=== PATIENT | female | born 1965 | race Caucasian/White ===

== ENCOUNTER → 2017-01-14 | Outpatient (CLI) | payer OTHER | END | disposition home or self-care (01) | LOC: CVU 15:27 | PROVIDERS: ATTEND Internal Medicine Cardiovascular Disease | DX: I08.3 Combined rheumatic disorders of mitral, aortic and tricuspid valves (principal); I10 Essential (primary) hypertension; E11.9 Type 2 diabetes mellitus without complications; E66.01 Morbid (severe) obesity due to excess calories | CPT/HCPCS: 93306 ==

== ENCOUNTER → 2017-11-07 | Outpatient (CLI) | payer OTHER | END | disposition home or self-care (01) | LOC: CFH 07:24 | PROVIDERS: ATTEND Family Medicine | DX: Z12.31 Encounter for screening mammogram for malignant neoplasm of breast (principal) | CPT/HCPCS: 77067 ==

== ENCOUNTER → 2018-03-12 | Outpatient (CLI) | payer OTHER | END | disposition home or self-care (01) | LOC: CVU 06:39 | PROVIDERS: ATTEND Internal Medicine Cardiovascular Disease | DX: I35.1 Nonrheumatic aortic (valve) insufficiency (principal); I11.9 Hypertensive heart disease without heart failure; I71.2 Thoracic aortic aneurysm, without rupture; E11.9 Type 2 diabetes mellitus without complications; E66.9 Obesity, unspecified | CPT/HCPCS: 93306 ==

== ENCOUNTER 2018-04-12 22:04 | Emergency (ER) | payer OTHER ==
[~2018-04-12] VITALS: Ht 175.3 cm; Wt 132.2 kg
[2018-04-12 23:08] LABS: BASOPHILS # (AUTO) 0.06 x10^3/uL (0-0.1); BASOPHILS % (AUTO) 1 % (0-1); EOSINOPHILS % (AUTO) 2 % (1-7); LYMPHOCYTES # (AUTO) 2.96 x10^3/uL (1-3.4); LYMPHOCYTES % (AUTO) 28 % (22-44); MD NO; MEAN CORPUSCULAR HEMOGLOBIN 24.6 pg (27.0-34.8); MEAN CORPUSCULAR HGB CONC 32.3 g/dL (32.4-35.8); MEAN CORPUSCULAR VOLUME 76.3 fL (80-100); MEAN PLATELET VOLUME 10.3 fL (7.4-10.4); MONOCYTES # (AUTO) 0.71 x10^3/uL (0.2-0.8); MONOCYTES % (AUTO) 7 % (2-9); NEUTROPHILS # (AUTO) 6.68 x10^3/uL (1.8-6.8); NEUTROPHILS % (AUTO) 63 % (42-75); PLATELET COUNT 255 x10^3/uL (130-400); RED BLOOD COUNT 5.37 x10^6/uL (3.82-5.3); RED CELL DISTRIBUTION WIDTH 15.5 % (9.6-15.2)
[2018-04-12 23:18] LABS: ANION GAP 9 mmol/L (5-15); CHLORIDE 102 mmol/L (98-107); CREATININE 0.84 mg/dL (0.55-1.02)
[2018-04-12 23:22] LABS: TROPONIN I < 0.015 ng/mL (0.000-0.045)
[2018-04-13] MEDS ORDERED: ONDANSETRON ODT 4 MG PO ONE
[2018-04-13] MEDS ORDERED: PROMETHAZINE 25 MG/ML, 1ML IM ONE
[2018-04-13] MEDS ORDERED: PROMETHAZINE 25 MG/ML, 1ML ONE (00:06)
[2018-04-13] MEDS ORDERED: ONDANSETRON ODT 4 MG ONE (00:06)
[2018-04-13 00:23] VITALS: BP 131/77
[2018-04-13 00:33] LABS: MICROSCOPIC INDICATED
[2018-04-13 00:36] LABS: CULTURE INDICATED? YES
== END 2018-04-13 01:18 | disposition home or self-care (01) ==
LOC: ED 04-13 00:42
DX: R42 Dizziness and giddiness (principal); E11.9 Type 2 diabetes mellitus without complications; I10 Essential (primary) hypertension; E78.00 Pure hypercholesterolemia, unspecified
CPT/HCPCS: 70450; 80048; 81001; 82040; 82962; 84484; 85025; 87086; 93005; 96372; 99285; J2550; Q0162

== ENCOUNTER → 2018-08-20 | Outpatient (CLI) | payer OTHER | END | disposition home or self-care (01) | LOC: CFH 14:58 | PROVIDERS: ATTEND Family Medicine | DX: M19.071 Primary osteoarthritis, right ankle and foot (principal) ==

== ENCOUNTER 2019-10-24 16:12 | Inpatient (IN) | payer BC ==
[~2019-10-24] VITALS: Ht 175.3 cm; Wt 136.3 kg
[2019-10-24] MEDS ORDERED: ONDANSETRON 2MG/ML, 2ML ONE (16:57)
[2019-10-24] MEDS ORDERED: SODIUM CHLORIDE 0.9% 1,000ML IVBOLUS ONE (17:00)
[2019-10-24] MEDS ORDERED: SODIUM CHLORIDE FLUSH 10ML SYR IVF ONE (17:00)
[2019-10-24] MEDS ORDERED: ONDANSETRON 2MG/ML, 2ML IVPush ONE (17:00)
[2019-10-24 17:19] LABS: BASOPHILS # (AUTO) 0.01 x10^3/uL (0-0.1); BASOPHILS % (AUTO) 0 % (0-1); EOSINOPHILS # (AUTO) 0.08 x10^3/uL (0-0.4); EOSINOPHILS % (AUTO) 1 % (1-7); LYMPHOCYTES % (AUTO) 6 % (22-44); MD NO; MEAN CORPUSCULAR HEMOGLOBIN 24.6 pg (27.0-34.8); MEAN CORPUSCULAR HGB CONC 32.6 g/dL (32.4-35.8); MEAN CORPUSCULAR VOLUME 75.4 fL (80-100); MEAN PLATELET VOLUME 10.1 fL (7.4-10.4); MONOCYTES # (AUTO) 0.62 x10^3/uL (0.2-0.8); MONOCYTES % (AUTO) 5 % (2-9); NEUTROPHILS # (AUTO) 11.03 x10^3/uL (1.8-6.8); NEUTROPHILS % (AUTO) 89 % (42-75); PLATELET COUNT 249 x10^3/uL (130-400); RED BLOOD COUNT 5.59 x10^6/uL (3.82-5.3); RED CELL DISTRIBUTION WIDTH 16.2 % (9.6-15.2)
[2019-10-24 17:20] LABS: RAPID INFLUENZA A Negative (Negative); RAPID INFLUENZA B Negative (Negative)
[2019-10-24 17:27] LABS: ALANINE AMINOTRANSFERASE 32 U/L (12-78); ALBUMIN 3.6 g/dL (3.4-5.0); ANION GAP 9 mmol/L (5-15); CALCIUM 8.8 mg/dL (8.5-10.1); CHLORIDE 104 mmol/L (98-107); CREATININE 0.79 mg/dL (0.55-1.02)
[2019-10-24 17:30] LABS: ALKALINE PHOSPHATASE 77 U/L (45-117); BILIRUBIN,TOTAL 0.3 mg/dL (0.2-1.0); TOTAL PROTEIN 7.9 g/dL (6.4-8.2)
--- NOTE | 2019-10-24 17:38 | NUR ---
PT TO ED FROM HOME C/O N/V X2 DAYS. IS DIABETIC, UNABLE TO HOLD ANYTHING DOWN SINCE NOON. STS HAS BEEN HOSPITALIED FOR DKA BEFORE. PIV EST/LABS SENT. NEED UA. HYPERTENSIVE. LUQ ABD PAIN ON PALP. GURGLY BS. NO DIARRHEA/CP/SOB. STS COUGHING UP SOME PHLEGM. CALL KOWALSKI IN [place].
[2019-10-24 18:10] LABS: MICROSCOPIC INDICATED
[2019-10-24 18:17] LABS: CULTURE INDICATED? YES
[2019-10-24] MEDS ORDERED: LEVOFLOXACIN/PMX 750MG/150ML 150 ML IV ONE (18:30)
[2019-10-24] MEDS ORDERED: GUAIFENESIN/DM 200-20MG, 10ML UDC PO PRN (18:30)
[2019-10-24] MEDS ORDERED: LEVOFLOXACIN/PMX 750MG/150ML 150 ML ONE (18:41)
--- NOTE | 2019-10-24 18:47 | NUR ---
REPORT TO JENNI HOBSON.
--- NOTE | 2019-10-24 18:59 | NUR ---
PT TBADM FOR SEPSIS/VOMITING. RECEIVED [address] MEEHAN NO SECOND BOLUS NEEDED. BP STABLE. ABX PER OCT. CALL KOWALSKI IN [place]. ROCHELLE DÍAZ FROM [facility]ARM.
[2019-10-24] MEDS ORDERED: BISACODYL 10 MG SUPP PR PRN (19:30)
[2019-10-24] MEDS ORDERED: POLYETHYLENE GLYCOL 17 GM PACKET PO PRN (19:30)
--- NOTE | 2019-10-24 19:54 | NUR ---
report to lady mas. as
[2019-10-24] MEDS: HEPARIN 5,000 UNITS/ML, 1ML SQ SCH (20:30)
[2019-10-24 20:34] VITALS: BP 159/93
[2019-10-24] MEDS: ACETAMINOPHEN 325 MG TABLET PO PRN (20:36)
[2019-10-24] MEDS: ONDANSETRON ODT 4 MG PO PRN (20:36)
[2019-10-24] MEDS: SODIUM CHLORIDE 0.9% 1,000 ML IV SCH (20:37)
[2019-10-24] MEDS ORDERED: LIRA0.6P SC (22:19)
[2019-10-24] MEDS ORDERED: SIMV40TA20 PO (22:19)
[2019-10-24] MEDS ORDERED: ASPI-696 PO (22:19)
[2019-10-24] MEDS ORDERED: SITA1TAB5 PO (22:19)
[2019-10-24] MEDS ORDERED: CARV25TA PO (22:19)
[2019-10-24] MEDS ORDERED: INSU100V35 SC (22:19)
[2019-10-24] MEDS ORDERED: OMEP40CA42 PO (22:19)
[2019-10-24] MEDS: Liraglutide (Victoza 2-Pak) 1.8 MG SC SCH (23:00)
[2019-10-24] MEDS ORDERED: metFORMIN 500 MG TABLET PO SCH (23:35)
[2019-10-24] MEDS ORDERED: INSULIN GLARGINE 100 UNITS/ML, PEN SQ-INSULIN SCH (23:45)
[2019-10-25 00:35] VITALS: BP 142/78
[2019-10-25] MEDS: ASPIRIN 81 MG TABLET CHEW PO SCH ×2 (00:35→21:15)
[2019-10-25] MEDS: CARVEDILOL 25 MG TABLET PO SCH ×3 (00:35→21:15)
[2019-10-25] MEDS: ONDANSETRON ODT 4 MG PO PRN (00:35)
[2019-10-25] MEDS: SIMVASTATIN 40 MG TABLET PO SCH ×2 (00:36→21:15)
[2019-10-25] MEDS: ACETAMINOPHEN 325 MG TABLET PO PRN ×3 (01:01→21:15)
[2019-10-25 05:13] LABS: BASOPHILS # (AUTO) 0.01 x10^3/uL (0-0.1); BASOPHILS % (AUTO) 0 % (0-1); EOSINOPHILS # (AUTO) 0.04 x10^3/uL (0-0.4); EOSINOPHILS % (AUTO) 0 % (1-7); LYMPHOCYTES # (AUTO) 0.71 x10^3/uL (1-3.4); LYMPHOCYTES % (AUTO) 7 % (22-44); MD NO; MEAN CORPUSCULAR HEMOGLOBIN 24.4 pg (27.0-34.8); MEAN CORPUSCULAR HGB CONC 31.9 g/dL (32.4-35.8); MEAN CORPUSCULAR VOLUME 76.6 fL (80-100); MEAN PLATELET VOLUME 10.2 fL (7.4-10.4); MONOCYTES # (AUTO) 0.94 x10^3/uL (0.2-0.8); MONOCYTES % (AUTO) 9 % (2-9); NEUTROPHILS % (AUTO) 84 % (42-75); PLATELET COUNT 210 x10^3/uL (130-400); RED BLOOD COUNT 5.06 x10^6/uL (3.82-5.3); RED CELL DISTRIBUTION WIDTH 16.5 % (9.6-15.2)
[2019-10-25 05:24] LABS: ANION GAP 4 mmol/L (5-15); CHLORIDE 104 mmol/L (98-107); CREATININE 0.75 mg/dL (0.55-1.02)
[2019-10-25] MEDS: SODIUM CHLORIDE 0.9% 1,000 ML IV SCH ×2 (06:31→17:06)
[2019-10-25] MEDS: HEPARIN 5,000 UNITS/ML, 1ML SQ SCH ×3 (06:31→21:21)
[2019-10-25 07:26] VITALS: BP 136/87
[2019-10-25] MEDS ORDERED: LINAGLIPTIN 5 MG TAB PO SCH (08:00)
[2019-10-25] MEDS: OMEPRAZOLE 20 MG CAPSULE.DR PO SCH (08:16)
[2019-10-25] MEDS: SENNA/DOCUSATE TABLET PO SCH (08:24)
[2019-10-25] MEDS ORDERED: DEXTROSE 4 GM TAB.CHEW PO PRN (11:00)
[2019-10-25] MEDS ORDERED: DEXTROSE 50%, 50ML SYRINGE IVPush PRN (11:00)
[2019-10-25] MEDS ORDERED: GLUCAGON 1 MG IM PRN (11:00)
[2019-10-25 12:31] VITALS: BP 115/72
[2019-10-25] MEDS: INSULIN LISPRO 100 UNITS/ML, PEN SQ-INSULIN SCH ×3 (12:52→21:17)
[2019-10-25] MEDS ORDERED: OMNIPAQUE 350 MG/ML, 100ML BOTTLE ONE (17:39)
[2019-10-25] MEDS: FERROUS GLUCONATE 324 MG TABLET PO SCH (17:55)
[2019-10-25 19:57] LABS: FREE T4 (FREE THYROXINE) 1.18 ng/dL (0.76-1.46)
[2019-10-25 20:04] VITALS: BP 153/84
[2019-10-25] MEDS: TRESIBA SQ SCH (21:00)
[2019-10-25] MEDS: Liraglutide (Victoza 2-Pak) 1.8 MG SC SCH (21:00)
[2019-10-25] MEDS: SODIUM CHLORIDE FLUSH 10ML SYR IVF SCH (21:21)
[2019-10-26 02:00] VITALS: BP 121/67
[2019-10-26] MEDS: GUAIFENESIN/DM 200-20MG, 10ML UDC PO PRN ×2 (02:41→21:01)
[2019-10-26] MEDS: ACETAMINOPHEN 325 MG TABLET PO PRN ×2 (02:41→08:38)
[2019-10-26] MEDS: SODIUM CHLORIDE 0.9% 1,000 ML IV SCH ×2 (02:42→12:30)
[2019-10-26 05:32] LABS: ANION GAP 7 mmol/L (5-15); BASOPHILS # (AUTO) 0.01 x10^3/uL (0-0.1); BASOPHILS % (AUTO) 0 % (0-1); CALCIUM 7.7 mg/dL (8.5-10.1); CHLORIDE 104 mmol/L (98-107); CREATININE 0.64 mg/dL (0.55-1.02); EOSINOPHILS # (AUTO) 0.01 x10^3/uL (0-0.4); EOSINOPHILS % (AUTO) 0 % (1-7); LYMPHOCYTES # (AUTO) 0.84 x10^3/uL (1-3.4); LYMPHOCYTES % (AUTO) 16 % (22-44); MD NO; MEAN CORPUSCULAR HEMOGLOBIN 24.5 pg (27.0-34.8); MEAN CORPUSCULAR VOLUME 76.7 fL (80-100); MEAN PLATELET VOLUME 9.5 fL (7.4-10.4); MONOCYTES # (AUTO) 0.71 x10^3/uL (0.2-0.8); MONOCYTES % (AUTO) 13 % (2-9); NEUTROPHILS # (AUTO) 3.86 x10^3/uL (1.8-6.8); NEUTROPHILS % (AUTO) 71 % (42-75); PLATELET COUNT 185 x10^3/uL (130-400); RED BLOOD COUNT 4.73 x10^6/uL (3.82-5.3); RED CELL DISTRIBUTION WIDTH 16.9 % (9.6-15.2)
[2019-10-26] MEDS: HEPARIN 5,000 UNITS/ML, 1ML SQ SCH ×2 (06:32→21:00)
[2019-10-26 06:37] VITALS: BP 133/82
[2019-10-26] MEDS: SODIUM CHLORIDE FLUSH 10ML SYR IVF SCH ×2 (07:24→20:32)
[2019-10-26] MEDS: OMEPRAZOLE 20 MG CAPSULE.DR PO SCH (08:30)
[2019-10-26] MEDS: FERROUS GLUCONATE 324 MG TABLET PO SCH ×3 (08:30→16:33)
[2019-10-26] MEDS: CARVEDILOL 25 MG TABLET PO SCH ×2 (08:31→20:31)
[2019-10-26] MEDS: INSULIN LISPRO 100 UNITS/ML, PEN SQ-INSULIN SCH ×4 (08:32→21:01)
[2019-10-26] MEDS: SENNA/DOCUSATE TABLET PO SCH (08:44)
[2019-10-26 12:21] VITALS: BP 102/69
[2019-10-26 20:26] VITALS: BP 150/89
[2019-10-26] MEDS: SIMVASTATIN 40 MG TABLET PO SCH (20:32)
[2019-10-26] MEDS: ASPIRIN 81 MG TABLET CHEW PO SCH (20:32)
[2019-10-26] MEDS: Liraglutide (Victoza 2-Pak) 1.8 MG SC SCH (21:00)
[2019-10-26] MEDS: TRESIBA SQ SCH (21:00)
[2019-10-27] MEDS: ACETAMINOPHEN 325 MG TABLET PO PRN (02:44)
[2019-10-27 02:45] VITALS: BP 143/88
[2019-10-27] MEDS: HEPARIN 5,000 UNITS/ML, 1ML SQ SCH ×3 (06:02→20:09)
[2019-10-27] MEDS: SODIUM CHLORIDE 0.9% 1,000 ML IV SCH (06:02)
[2019-10-27] MEDS: INSULIN LISPRO 100 UNITS/ML, PEN SQ-INSULIN SCH ×4 (07:00→20:10)
[2019-10-27 07:36] VITALS: BP 134/86
[2019-10-27] MEDS: SODIUM CHLORIDE FLUSH 10ML SYR IVF SCH ×2 (08:07→20:11)
[2019-10-27] MEDS: SENNA/DOCUSATE TABLET PO SCH (08:08)
[2019-10-27] MEDS: CARVEDILOL 25 MG TABLET PO SCH ×2 (08:09→20:09)
[2019-10-27] MEDS: FERROUS GLUCONATE 324 MG TABLET PO SCH ×3 (08:09→16:14)
[2019-10-27] MEDS: OMEPRAZOLE 20 MG CAPSULE.DR PO SCH (08:09)
[2019-10-27 14:16] VITALS: BP 136/90
[2019-10-27 19:19] VITALS: BP 143/84
[2019-10-27] MEDS: SIMVASTATIN 40 MG TABLET PO SCH (20:09)
[2019-10-27] MEDS: ASPIRIN 81 MG TABLET CHEW PO SCH (20:09)
[2019-10-27] MEDS: Liraglutide (Victoza 2-Pak) 1.8 MG SC SCH (20:10)
[2019-10-27] MEDS: TRESIBA SQ SCH (20:11)
[2019-10-28 02:32] VITALS: BP 118/78
[2019-10-28] MEDS: ACETAMINOPHEN 325 MG TABLET PO PRN ×3 (02:38→15:19)
[2019-10-28] MEDS: HEPARIN 5,000 UNITS/ML, 1ML SQ SCH ×2 (06:04→12:40)
[2019-10-28] MEDS: INSULIN LISPRO 100 UNITS/ML, PEN SQ-INSULIN SCH ×3 (07:00→15:26)
[2019-10-28 07:46] VITALS: BP 145/77
[2019-10-28] MEDS: SENNA/DOCUSATE TABLET PO SCH (08:09)
[2019-10-28] MEDS: CARVEDILOL 25 MG TABLET PO SCH (08:09)
[2019-10-28] MEDS: FERROUS GLUCONATE 324 MG TABLET PO SCH ×3 (08:09→17:09)
[2019-10-28] MEDS: OMEPRAZOLE 20 MG CAPSULE.DR PO SCH (08:09)
[2019-10-28] MEDS: SODIUM CHLORIDE FLUSH 10ML SYR IVF SCH (08:11)
[2019-10-28] MEDS ORDERED: LIDOCAINE-MPF 1%, 5ML ONE (10:58)
[2019-10-28 15:14] VITALS: BP 142/86
[2019-10-28] MEDS ORDERED: FERR325T16 PO ×2 (19:13)
[2019-10-28] MEDS ORDERED: FERR240T2 PO (19:14)
[2019-10-28 19:25] VITALS: BP 145/89
== END 2019-10-28 20:18 | disposition home or self-care (01) | DRG 189 ==
LOC: ED 18:01 → EDIP 18:57 → 3N 20:25
PROVIDERS: ADMIT Family Medicine; ATTEND Family Medicine
PROC: 0GBG3ZX Excision of Left Thyroid Gland Lobe, Percutaneous Approach, Diagnostic (ICD-10-PCS; principal; 2019-10-28)
DX: J96.01 Acute respiratory failure with hypoxia (principal); R65.10 Systemic inflammatory response syndrome (SIRS) of non-infectious origin without acute organ dysfunction; E04.1 Nontoxic single thyroid nodule; D50.9 Iron deficiency anemia, unspecified; E11.9 Type 2 diabetes mellitus without complications; E66.01 Morbid (severe) obesity due to excess calories; E78.5 Hyperlipidemia, unspecified; I10 Essential (primary) hypertension; J06.9 Acute upper respiratory infection, unspecified; M19.90 Unspecified osteoarthritis, unspecified site; Z79.4 Long term (current) use of insulin; Z80.9 Family history of malignant neoplasm, unspecified; Z82.3 Family history of stroke; Z83.3 Family history of diabetes mellitus; Z88.1 Allergy status to other antibiotic agents
CPT/HCPCS: 36415; 71045; 71275; 76536; 76942; 80048; 80053; 81001; 82728; 82962; 83540; 83550; 83605; 83880; 84145; 84439; 84443; 84481; 85025; 87040; 87086; 87400; 88172; 88173; 93005; 96361; 96374; G0378; J1644; J1956; J2405; Q0162; Q9967; J1815; J7030

== ENCOUNTER 2019-12-03 17:53 | Emergency (ER) | payer BC ==
[~2019-12-03] VITALS: Ht 175.3 cm; Wt 125.0 kg
[~2019-12-03 17:53] MED LIST: ASPI-696 PO; CARV25TA PO; FERR240T2 PO; FERR325T16 PO; INSU100V35 SC; LIRA0.6P SC; OMEP40CA42 PO; SIMV40TA20 PO; SITA1TAB5 PO
[2019-12-03] MEDS ORDERED: ONDANSETRON 2MG/ML, 2ML ONE (18:36)
[2019-12-03] MEDS ORDERED: FAMOTIDINE 20 MG/2 ML ONE (18:37)
--- NOTE | 2019-12-03 18:44 | NUR ---
PT CAME IN CO OF NVD SINCE LAST NIGHT. PT DENIES EATING SOMETHING BAD. PTS REPORTS THAT SHE HAS BEEN VOMITTING ALL DAY. LABS DRAWN, MEDICATED PER MAR
[2019-12-03] MEDS ORDERED: SODIUM CHLORIDE 0.9% 1,000ML IVBOLUS ONE (19:00)
[2019-12-03] MEDS ORDERED: FAMOTIDINE 20 MG/2 ML IVPush ONE (19:00)
[2019-12-03] MEDS ORDERED: ONDANSETRON 2MG/ML, 2ML IVPush ONE (19:00)
[2019-12-03] MEDS ORDERED: SODIUM CHLORIDE FLUSH 10ML SYR IVF ONE (19:00)
[2019-12-03 19:04] LABS: BASOPHILS # (AUTO) 0.04 x10^3/uL (0-0.1); BASOPHILS % (AUTO) 1 % (0-1); EOSINOPHILS % (AUTO) 0 % (1-7); LYMPHOCYTES # (AUTO) 0.56 x10^3/uL (1-3.4); LYMPHOCYTES % (AUTO) 8 % (22-44); MD NO; MEAN CORPUSCULAR HEMOGLOBIN 24.2 pg (27.0-34.8); MEAN CORPUSCULAR HGB CONC 32.3 g/dL (32.4-35.8); MEAN CORPUSCULAR VOLUME 74.8 fL (80-100); MEAN PLATELET VOLUME 9.8 fL (7.4-10.4); MONOCYTES # (AUTO) 0.36 x10^3/uL (0.2-0.8); MONOCYTES % (AUTO) 5 % (2-9); NEUTROPHILS # (AUTO) 6.11 x10^3/uL (1.8-6.8); NEUTROPHILS % (AUTO) 87 % (42-75); PLATELET COUNT 245 x10^3/uL (130-400); RED BLOOD COUNT 5.89 x10^6/uL (3.82-5.3); RED CELL DISTRIBUTION WIDTH 16.8 % (9.6-15.2)
[2019-12-03 19:14] LABS: ALANINE AMINOTRANSFERASE 19 U/L (12-78); ALBUMIN 3.2 g/dL (3.4-5.0); ANION GAP 9 mmol/L (5-15); CALCIUM 9.1 mg/dL (8.5-10.1); CHLORIDE 100 mmol/L (98-107); CREATININE 0.77 mg/dL (0.55-1.02)
[2019-12-03 19:16] LABS: ALKALINE PHOSPHATASE 64 U/L (45-117); BILIRUBIN,TOTAL 0.3 mg/dL (0.2-1.0); TOTAL PROTEIN 8.6 g/dL (6.4-8.2)
[2019-12-03 19:23] VITALS: BP 139/79
--- NOTE | 2019-12-03 19:37 | NUR ---
ALL RESULTS ARE BACK AT THIS TIME. IVF COMPLETE. CHART UP FOR RECHECK.
--- NOTE | 2019-12-03 19:57 | NUR ---
PT GIVEN WATER FOR PO CHALLENGE. PT ABLE TO KEEP WATER DOWN FOR THE PAST 10-15 MIN. AWARE.
== END 2019-12-03 20:28 | disposition home or self-care (01) ==
LOC: ED 19:14
DX: R11.2 Nausea with vomiting, unspecified (principal); R42 Dizziness and giddiness; R10.9 Unspecified abdominal pain; R00.0 Tachycardia, unspecified; I10 Essential (primary) hypertension; E11.9 Type 2 diabetes mellitus without complications; E78.00 Pure hypercholesterolemia, unspecified
CPT/HCPCS: 36415; 71045; 80053; 83690; 85025; 96374; 96375; 99284; J2405; J3490; J7030

== ENCOUNTER 2020-05-01 09:50 | Emergency (ER) | payer BC ==
[~2020-05-01] VITALS: Ht 175.3 cm; Wt 132.3 kg
[2020-05-01 10:53] VITALS: BP 113/67
== END 2020-05-01 12:20 | disposition home or self-care (01) ==
LOC: ED 12:00
DX: S39.012A Strain of muscle, fascia and tendon of lower back, initial encounter (principal); S70.02XA Contusion of left hip, initial encounter; M51.36 Other intervertebral disc degeneration, lumbar region; M25.562 Pain in left knee; R94.31 Abnormal electrocardiogram [ECG] [EKG]; I10 Essential (primary) hypertension; E11.9 Type 2 diabetes mellitus without complications; E78.00 Pure hypercholesterolemia, unspecified; W01.0XXA Fall on same level from slipping, tripping and stumbling without subsequent striking against object, initial encounter; Y93.89 Activity, other specified; Y92.218 Other school as the place of occurrence of the external cause; Y99.8 Other external cause status
CPT/HCPCS: 72131; 93005; 99284